=== PATIENT | female | born 1960 | race Two or more races ===

== ENCOUNTER 2019-10-15 15:08 | Outpatient (CLI) | payer OTHER | END 2019-10-15 15:13 | disposition home or self-care (01) | LOC: RAD 15:08 | DX: M25.562 Pain in left knee (principal) ==

== ENCOUNTER → 2019-12-15 | Emergency (ER) | payer OTHER ==
[~2019-12-15] VITALS: Ht 157.5 cm; Wt 52.2 kg
== END | disposition left against medical advice (07) ==
LOC: ER 18:30
DX: Z53.20 Procedure and treatment not carried out because of patient's decision for unspecified reasons (principal)